=== PATIENT | male | born 1985 | race Asian ===

== ENCOUNTER → 2024-11-16 15:09 | Outpatient (REF) | payer OTHER, SELFPAY | LOC: RAD 15:09 | PROVIDERS: ATTENDING PHYSICIAN Family Medicine | DX: D09.3 Carcinoma in situ of thyroid and other endocrine glands (principal) | CPT/HCPCS: 76536 ==

== ENCOUNTER → 2024-11-30 15:07 | Outpatient (REF) | payer OTHER, SELFPAY | LOC: RAD 15:07 | PROVIDERS: ATTENDING PHYSICIAN Family Medicine | DX: D09.3 Carcinoma in situ of thyroid and other endocrine glands (principal) | CPT/HCPCS: 70491; Q9967 ==